=== PATIENT | male | born 1995 | race Caucasian/White ===

== ENCOUNTER → 2022-11-24 | Outpatient (CLI) | payer BC ==
--- NOTE | 2022-11-24 09:07 | US ---
EXAMINATION TYPE: US liver DATE OF EXAM: 11/24/2022 COMPARISON: NONE CLINICAL INDICATION: Male, 27 years old with history of K75.9 INFLAMMATORY LIVER DISEASE, UNSPECIFIED ; TECHNIQUE: Multiple sonographic images of the right upper quadrant are obtained. FINDINGS: EXAM MEASUREMENTS: Liver Length: 17.8 cm Gallbladder Wall: 0.2 cm CBD: 0.4 cm Right Kidney: 9.9 x 4.6 x 5.7 cm Pancreas: visualized portions wnl, limited by overlying midline bowel gas Liver: measures in upper limits of normal, mildly attenuating Gallbladder: wnl Evidence for sonographic Leo's sign: no CBD: visualized portions wnl, limited by overlying bowel gas Right Kidney: wnl Visualized portions of the pancreas unremarkable. Liver is unremarkable without focal lesion. Gallbla dder damage is no evidence of stones, wall thickening, or pericholecystic fluid. Per dairy technologist, neg ative sonographic Leo sign. Visualized portions of the common bile duct are within normal limits. Right kidney is unremarkable without evidence of solid mass, nephrolithiasis, or hydronephrosis. IMPRESSION: No ultrasound evidence for an acute process.
== END | disposition home or self-care (01) ==
LOC: RADUSWWP 07:00
PROVIDERS: ATTEND Internal Medicine
DX: K75.9 Inflammatory liver disease, unspecified (principal)
CPT/HCPCS: 76705